=== PATIENT | female | born 1970 | race Caucasian/White ===

== ENCOUNTER 2018-02-15 06:57 | Day surgery (SDC) | payer MEDICARE, MEDICAID ==
[~2018-02-15 06:57] MED LIST: ACETAMINOPHEN 1,000 MG/100 ML BTL IV ONE
[2018-02-15] MEDS ORDERED: FENTANYL PF 100MCG/2ML VIAL IV ONE (06:58)
[2018-02-15] MEDS ORDERED: LIDOCAINE 1% W/EPI 1:200,000 MPF 30ML SQ ONE (06:58)
[2018-02-15] MEDS ORDERED: MIDAZOLAM HCL 2MG/2ML VIAL IV ONE (06:58)
[2018-02-15] MEDS ORDERED: PROPOFOL 10 MG/ML VIAL IV ONE (06:58)
[2018-02-15] MEDS ORDERED: BUPIVACAINE 0.5% W/EPI MPF 30 ML VIAL IVP ONE (06:58)
[2018-02-15] MEDS ORDERED: LIDOCAINE 2% MDV (20MG/ML) 20ML VIAL IV ONE (06:58)
[2018-02-15] MEDS ORDERED: DEXAMETHASONE PRESERVATIVE FREE 10MG/ML VIAL IV ONE (06:58)
--- NOTE | 2018-02-15 09:32 | Operative Note ---
DATE OF SURGERY: 02/15/2018. PREOPERATIVE DIAGNOSIS: CERVICAL SPONDYLOSIS WITHOUT MYELOPATHY, ICD-10 CODE M47.812. POSTOPERATIVE DIAGNOSIS: CERVICAL SPONDYLOSIS WITHOUT MYELOPATHY, ICD-10 CODE M47.812. PROCEDURE: Radiofrequency rhizotomy of the bilateral cervical facets 4-5, 5-6, and 6-7. ANESTHESIA: Local sedation. ANESTHESIA PROVIDER: Shefali Stein CRNA. INDICATIONS: This patient presents with primary neck pain. Examination shows tenderness in the cervical spine. Range of motion does cause pain to the neck with extension. Diagnostic studies show diffuse, multilevel spondylosis. A facet series provided greater than 75 percent pain control. Due to the failure of therapy and the success of the facet series, the patient presents today for rhizotomy for more long-term relief. DESCRIPTION OF PROCEDURE: Intravenous lines, vital sign monitoring, and intravenous sedation. Prepped and draped with sterile technique. Under imaging of the cervical facet levels at 4-5, 5-6, and 6-7 were identified and marked bilaterally and the skin was infiltrated. The patient was positioned prone. Maintaining sterile technique, a 20-gauge rhizotomy cannula was positioned at each area bilaterally. Stimulation trial was conducted and rhizotomy burn was performed at 80 degrees for 90 seconds at each area bilaterally. All areas were cleaned. Topical antibiotic and sterile dressing applied. Will monitor and evaluate. cc: Marlno Orozco D.O. JOB NUMBER: [id number] MTDD
== END 2018-02-15 09:40 | disposition home or self-care (01) ==
LOC: SUR 06:57
PROVIDERS: ATTEND Pain Medicine Interventional Pain Medicine
DX: M47.812 Spondylosis without myelopathy or radiculopathy, cervical region (principal); E78.00 Pure hypercholesterolemia, unspecified; J44.9 Chronic obstructive pulmonary disease, unspecified; F17.210 Nicotine dependence, cigarettes, uncomplicated; F12.90 Cannabis use, unspecified, uncomplicated
CPT/HCPCS: 64633; 64634 ×2; 01936; J1100; J3010